=== PATIENT | male | born 1945 | race Caucasian/White ===

== ENCOUNTER 2023-11-17 10:50 | Outpatient (REF) | payer MEDICARE, OTHER, SELFPAY ==
[2023-11-17 14:09] LABS: MANUAL DIFF FLAG NO
[2023-11-17 14:11] LABS: Basophils Absolute Auto 0.1 X10*3/uL (0.0-0.2); Basophils Percent Auto 1.1 % (0-2); Eosinophils Absolute Auto 0.4 X10*3/uL (0.0-0.4); Eosinophils Percent Auto 4.8 % (0-4); Hemoglobin 14.5 g/dl (14.0-18.0); Imm Gran Abs Auto 0.02 X10*3/uL (0.00-0.03); Imm Gran Pct Auto 0.2 % (0.0-0.4); Lymphocytes Absolute Auto 1.6 X10*3/uL (1.2-4.9); Lymphocytes Percent Auto 18.2 % (20-40); Mean Corpuscular Hemoglobin 30.1 pg (27.0-33.0); Mean Corpuscular Volume 91.5 fL (80.0-98.0); Mean Platelet Volume 11.5 fL (9.4-12.4); Monocytes Absolute Auto 0.6 X10*3/uL (0.1-1.2); Monocytes Percent Auto 6.5 % (2-11); Neutrophils Absolute Auto 6.1 x10*3/uL (2.0-8.3); Neutrophils Percent Auto 69.2 % (45-73); Platelet Count 254 X10*3/uL (160-400); Red Blood Count 4.81 X10*6/uL (4.60-5.80); Red Cell Distribution Width 13.7 % (11.0-16.0); White Blood Count 8.8 X10*3/uL (4.8-10.8)
[2023-11-17 14:38] LABS: Alanine Aminotransferase 21 U/L (0-40); Albumin Level 4.6 g/dL (3.5-5.0); Alkaline Phosphatase 47 U/L (39-117); Anion Gap 13 (12-20); Aspartate Amino Transferase 23 U/L (5-37); Bilirubin Total 0.4 mg/dL (0.0-1.0); Blood Urea Nitrogen 23 mg/dL (9-16); Calcium 10.3 mg/dL (8.4-10.2); Carbon Dioxide 30 mmol/L (22-29); Chloride 104 mmol/L (96-108); Cholesterol 235 mg/dL (<200); Estimated Glomerular Filt Rate 35; Glucose Random 98 mg/dL (60-115); HDL Cholesterol 39 mg/dL (>40); LDL Cholesterol Calculated 160 mg/dL (<100); Sodium 143 mmol/L (135-145); Total Protein 7.7 g/dL (6.5-8.0); Triglycerides 183 mg/dL (<150)
[2023-11-17 14:55] LABS: TSH reflex Free T4 0.98 uIU/mL (0.32-4.0)
== END 2023-11-17 10:51 | disposition home or self-care (01) ==
LOC: HO.CHCLDS 10:50
PROVIDERS: Visit Provider Internal Medicine
DX: N40.1 Benign prostatic hyperplasia with lower urinary tract symptoms (principal); R39.12 Poor urinary stream; N18.2 Chronic kidney disease, stage 2 (mild); E78.2 Mixed hyperlipidemia
CPT/HCPCS: 36415; 80053; 80061; 84443; 85025

== ENCOUNTER 2024-06-14 16:19 | Outpatient (REF) | payer MEDICARE, OTHER, SELFPAY ==
--- OUTSIDE RECORDS SUMMARY | 2024-06-14 16:21 | XMS_ITS | Encounter Summary ---
Author Organization [employer] Address [address] [place] [address] Care Team Providers Care Household Coordinator Name Role Phone Vernon Madden MD Primary Care Provider [phone] [phone] Encounter Details Date Type Department Care Team (Latest Contact Info) Description 06/14/2024 Travel Social History Tobacco Use Types Packs/Day Years Used Date Smoking Tobacco: Former Cigarettes Smokeless Tobacco: Never Alcohol Answer Date Recorded Q1: How often do you have a drink containing alc ohol? 2 03/12/2024 Q2: How many drinks containi ng alcohol do you have on a typical day when you are drinking? 0 03/12/2024 Q3: How often do you have six or more drinks on one occasion? 2 03/12/2024 Depression Answer Date Recorded Patient Health Questionnaire-9 Score 3 05/01/2024 Patient Health Questionnaire-9 Score 3 05/01/2024 Last PHQ-9: Questionnaire Data Not on file 0 05/01/2024 Housing Stability Answer Date Recorded What is your housing situation today? I have alannah mota 11/10/[address] you li ve. Do you have problems with any of the following? None of the above 11/10/2023 Food Insecurity Answer Date Recorded Within the past 12 months, y ou worried that your food would run out before you got money to buy more: Never True 11/10/2023 Within the past 12 months,th e food you bought just didn't last and you didn't have enough money to get more: Never True 04/2023 Transportation Answer Date Recorded In the past 12 months, has l ack of transportation kept you from medical appts, meetings, work or from getting things needed for daily living? No 11/10/2023 Utilities Answer Date Recorded In the past 12 months, has t he electric, gas, oil or water company threatened to shut off services in your home? No 11/10/2023 Depression Answer Date Recorded Patient Health Questionnaire-2 Score 0 05/01/2024 Internet Access Answer Date Recorded Internet Access Q1 Yes 11/10/2023 Internet Access Q2 Not on file 11/10/2023 Sex and Gender Information Value Date Recorded Sex Assigned at Male 11/17/2023 9:41 AM EDT Legal Sex Male 7:52 AM EDT Gender Identity Male 11/17/2023 9:41 AM EDT Sexual Orientation Straight 11/17/2023 9: 41 AM EDT documented as of this encounter Plan of Treatment Upcoming Encounters Date Type Department Care Team (Late st Contact Info) Description 07/03/2024 3:15 PM EDT Office Visit [facility] P[facility]S [address] [place] [address] Vernon Madden MD [address] [place] [address] documented as of this encounter Visit Diagnoses Not on filedocumented in this encounter Additional Health Concerns Assessment Noted Time PHQ-9 Depression Total Score: 3 05/02/19 25 8:07 AM EDT documented as of this encounter Care Teams Household Coordinator Relationship Specialty Start Date End Date Vernon Madden MD [address] [place] [address] PCP - General Internal Medicine 11/17/23 documented as of this encounter
--- OUTSIDE RECORDS SUMMARY | 2024-06-14 16:21 | XMS_ITS | Clinical Summary ---
Author Organization [employer] Address [address] [facility] 7[address] [place] [address] Care Team Providers Care Jail Officer Name Role Phone Vernon Madden MD Primary Care Provider [phone] Allergies No known active allergies Medications atorvastatin (Lipitor) 10 MG tabletIndicati ons:Mixed hyperlipidemia ,Chronic systolic congestive heart failure (CMS/HCC) Take 1 tablet (10 mg) by mouth Once per day. 90 tablet 3 11/17/19 24 Active diphenhydrAMIN E-acetaminophe n (Tylenol PM Extra Strength) 25-500 MG per tabletIndicati ons:Primary insomnia Take 1 tablet by mouth if needed at bedtime for sleep. 30 tablet 11 11/17/19 24 Active meclizine (Antivert) 12.5 MG tabletIndicati ons:Benign prostatic hyperplasia with weak urinary stream Take 1 tablet (12.5 mg) by mouth if needed in the morning and at bedtime for dizziness. 3060 tablet 1 11/17/19 24 Active tamsulosin (Flomax) 0.4 MG 24 hr capsule Take 2 capsules (0.8 mg) by mouth Once per day. 90 capsule 3 11/17/19 24 Active bisoprolol (Zebeta) 5 MG tablet Take 1.25 mg by mouth Once per day. Active Farxiga 10 MG Take 1 tablet by mouth Once per day. 11/28/19 24 Active omeprazole (PriLOSEC) [address] capsule Take 1 capsule by mouth Once per day. 11/17/19 24 Active spironolactone (Aldactone) 25 MG tablet Take 12.5 mg by mouth Once per day. 12/12/19 24 Active furosemide (Lasix) 20 MG tabletIndicati ons:Wheezing Take 0.5 tablets (10 mg) by mouth Once per day. 15 tablet 1 03/12/19 25 2025 Active furosemide (Lasix) 20 MG tabletIndicati ons:Chronic systolic congestive heart failure (CMS/HCC) Take 1 tablet (20 mg) by mouth Once per day. 30 tablet 03/16/19 25 2025 Active levalbuterol (Xopenex) 0.63 MG/3ML nebulizer solutionIndica tions:Wheezing Take 1 ampule by nebulization in the morning, at noon, and at bedtime. 72 mL 11 05/08/19 25 2025 Active baclofen (Lioresal) 5 MG tabletIndicati ons:Neck muscle spasm Take 1 tablet (5 mg) by mouth 3 times daily. TAKE 1 TABLET(5 MG) BY MOUTH IN THE MORNING AND AT BEDTIME NEEDED FOR MUSCLE CRAMPS 30 tablet 3 05/30/19 25 Active albuterol 108 (90 Base) MCG/ACT inhalerIndicat ions:SOB (shortness of breath) Inhale 2 puffs every 6 (six) hours if needed for wheezing. 18 g 3 05/30/19 25 Active azithromycin (Zithromax) 250 MG tabletIndicati ons:Chronic cough 500 mg on day 1, 250 mg day 2 through 5 6 tablet 05/30/19 25 Active albuterol 108 (90 Base) MCG/ACT inhalerIndicat ions:SOB (shortness of breath) Inhale 2 puffs every 6 (six) hours if needed for wheezing. 18 g 3 05/30/19 25 Active albuterol (2.5 MG/3ML) 0.083% nebulizer solutionIndica tions:Chronic cough,Wheezing Take 3 mL (2.5 mg) by nebulization every 6 (six) hours if needed for wheezing. 75 mL 11 05/30/19 25 2025 Active albuterol 108 (90 Base) MCG/ACT inhalerIndicat ions:SOB (shortness of breath) Inhale 2 puffs every 6 (six) hours if needed for wheezing. 18 g 3 11/17/19 24 2024 Discontinued(O ther) albuterol (2.5 MG/3ML) 0.083% nebulizer solutionIndica tions:Wheezing Take 3 mL (2.5 mg) by nebulization every 6 (six) hours if needed for wheezing. 75 mL 11 05/09/19 25 2024 Discontinued(R eorder (will not trigger notification to Pharmacy)) baclofen (Lioresal) 5 MG tabletIndicati ons:Neck muscle spasm TAKE 1 TABLET(5 MG) BY MOUTH IN THE MORNING AND AT BEDTIME NEEDED FOR MUSCLE CRAMPS 30 tablet 05/15/19 25 2024 Discontinued(R eorder (will not trigger notification to Pharmacy)) predniSONE (Deltasone) 20 MG tabletIndicati ons:Chronic cough Take 2 tablets (40 mg) by mouth Once per day for 5 days. 10 tablet 05/30/192024 guaiFENesin-co deine (Robitussin-AC ) 100-10 MG/5ML syrupIndicatio ns:Chronic cough Take 5 mL by mouth if needed in the morning, at noon, in the evening, and at bedtime for cough for up to 5 days. 237 mL 05/30/19 25 2024 Active Problems Problem Noted Date Diagnosed Date Hydronephrosis with urinary obstruction due to renal calculus 12/30/2023 Abdominal bloating 11/17/2023 Albuminuria 11/17/2023 Arthritis of finger of right hand 11/17/2023 BPH (benign prostatic hyperplasia) 11/17/2023 Dyspepsia 11/17/2023 Hyperlipidemia 11/17/2023 Hypertension 11/17/2023 Irregular heart beat 11/17/2023 Overweight with body mass index (BMI) 25.0-29.9 11/17/2023 Leg cramps 11/17/2023 Systolic congestive heart failure 11/17/2023 Chronic kidney disease, stage 2 (mild) Encounters Date Type Department Care Team Description 06/14/2024 3:15 PM EDT Office Visit [facility]S [address] [place] [address] Vernon Madden MD Dizziness on standing (Primary Dx); Primary hypertension 06/14/2024 Travel 06/14/2024 Telephone [facility] [address] [place] [address] Vernon Washington MD Nurse Triage 05/29/2024 11:00 AM EDT Office Visit [facility]ED[facility] [address] [place] [address] Vernon Madden MD Chronic cough (Primary Dx); SOB (shortness of breath); Wheezing 05/29/2024 Travel 05/29/2024 Telephone [facility] [address] [place] [phone] Vernon Madden MD Appointment Request 05/29/2024 Refill [facility] [address] [place] [phone] Vernon Madden MD Neck muscle spasm; SOB (shortness of breath) 05/21/2024 Telephone [facility] [address] [place] [address] Vernon Madden MD 05/14/2024 Refill [facility] [address] [place] [address] Vernon Madden MD Neck muscle spasm 05/08/2024 Orders Only [facility] [address] [place] [address] Vernon Pinto MD Wheezing (Primary Dx) 05/07/2024 Orders Only [facility] [address] [place] [address] Vernon Madden MD Wheezing (Primary Dx) 05/07/[address] [address] Vernon Madden MD New Med Request 04/30/2024 4:00 PM EDT Office Visit [facility] [address] [place] [address] Vernon Pinto MD Subacute cough (Primary Dx); Wheezing 04/30/2024 Travel 04/25/2024 Refill [facility] [address] [place] [address] Vernon Pinto MD Neck muscle spasm 04/02/2024 Refill [facility] [address] [place] [address] Vernon Madden MD Neck muscle spasm from Last 3 Months Immunizations Name Administration Dates Next Due Influenza Quadrivalent Adjuvanted 11/19/2020 Influenza, High Dose Seasona l, Preservative Free 11/17/2023 Influenza, IIV3, injectable 11/19/2020, 3,02/16/2012 Pfizer Covid-19 Vaccine 12+ 11/17/2023 Pneumococcal Conjugate PCV 20 11/17/2023 Family History Medical History Relation Name Comments Kidney failure Brother Diabetes type II Mother Relation Name Status Comments Brother Mother Social History Tobacco Use Types Packs/Day Years Used Date Smoking Tobacco: Former Cigarettes Smokeless Tobacco: Never Tobacco Cessation:Counseling Given: No Alcohol Answer Date Recorded Q1: How often [...] Orientation Straight 11/17/2023 9: 41 AM EDT Last Filed Vital Signs Vital Sign Reading Time Taken Comments Blood Pressure 128/108 06/14/2024 3:27 PM EDT Pulse 64 06/14/2024 3:27 PM EDT Temperature 36.7 ??C (98 ??F) 06/14/2024 3:27 PM EDT Respiratory Rate 20 06/14/2024 3:27 PM EDT Oxygen Saturation 98% 06/14/2024 3:27 PM EDT Inhaled Oxygen Concentration - - Weight 78.9 kg (174 lb) 06/14/2024 3:27 PM EDT Height 175.3 cm (5' 9 ) 06/14/2024 3:27 PM EDT Body Mass Index 25.7 06/14/2024 3:27 PM EDT Plan of Treatment Upcoming Encounters Date Type Department Care Team (Late st Contact Info) Description 07/03/2024 3:15 PM EDT Office Visit [facility] [address] [place] [address] Vernon Madden MD [address] [place] [address] Health Maintenance Due Date Last Done Comments Hepatitis C Screening 1963 DTaP/Tdap/Td Vaccines (1 - Tdap) 10/25/1963 Zoster Vaccines (1 of 2) 1994 RSV Patients and Patients Aged 60 years or older (1 - 1-dose 75+ series) 10/25/2019 SDOH Screening 11/09/2024 11/10/2023 Alcohol/Substance Use Screening 03/12/2025 03/12/2024 Depression Screening 05/01/2025 05/01/2024, 03/25/20 25 Tobacco Screening 06/14/2025 06/14/2024 Lipid Panel 11/16/2028 11/17/2023 COVID-19 Vaccine Completed 11/17/2023, , 11/19/2020, Additional history exists Influenza Vaccine Completed 11/17/2023, , 11/19/2020, Additional history exists Pneumococcal Vaccine: 50+ Years Completed 11/17/2023 HIB Vaccines Aged Out No longer eligi ble based on patient's age to complete this topic HPV Vaccines Aged Out No longer eligi ble based on patient's age to complete this topic Hepatitis A Vaccines Aged Out No long er eligible based on patient's age to complete this topic Hepatitis B Vaccines Aged Out No long er eligible based on patient's age to complete this topic IPV Vaccines Aged Out No longer eligi ble based on patient's age to complete this topic Meningococcal Vaccine Aged Out No neyda sarah eligible based on patient's age to complete this topic RSV under 20 months Aged Out No longe r eligible based on patient's age to complete this topic Rotavirus Vaccines Aged Out No longer eligible based on patient's age to complete this topic Procedures Procedure Name Priority Date/Time Associated Diagnosis Comments XR CHEST 2 VIEWS Routine 05/29/2024 Chronic cough XR CHEST 2 VIEWS Routine 03/19/2024 Wheezing LIPID PANEL, STANDARD Routine 11/17/2023 10:57 AM EDT Mixed hyperlipidemia from Last 3 Months or Most Recently Relevant to Health Maintenance Results * XR Chest 2 Views (05/29/2024) Only the most recent of2 resultswithin the time period is included. Anatomical Region Laterality Modality Chest Radiographic Peri ging us Vernon Madden MD IMG XR PROCEDURES Final Res ult * (ABNORMAL) Lipid Panel, Standard (11/17/2023 10:57 AM EDT) Triglycerides 183(H) <150 mg/dL [facility] Comment:Desirable Triglyceri de: less than 150 mg/dLBorderline High Triglyceride 150-199 mg/dLHigh Triglyceride: 200-499 mg/dLVery High Triglyceride: greater than or equal to 5OO mg/dL Cholesterol 235(H) <200 mg/dL [facility] Comment:Desirable Cholestero l: less than 200 mg/dLBorderline High Cholesterol: 200-239 mg/dLHigh Cholesterol: greater than 239 mg/dL LDL Cholesterol Calculated 160(H) <100 mg/dL [facility] Comment:Desirable LDL: less than 100 mg/dLNear Optimal/Above Optimal LDL: 110- 129 mg/dLBorderline High LDL: 130-159 mg/dLHigh LDL: 160-189 mg/dLVery High LDL: greater than or equal to 190 mg/dL HDL Cholesterol 39(L) >40 mg/dL [facility] Comment:Desirable HDL: great er than 40 mg/dL Note: This HDL assay may give artificially low results in patients with liver disease. Blood Venous blood specimen / Unknown 11/17/2023 10:57 AM EDT 11/17/2023 2:02 PM EDT Vernon Madden MD LAB BLOOD ORDERABLES Final Result [facility] [address] [place] [address] [phone] from Last 3 Months or Most Recently Relevant to Health Maintenance Insurance [facility] [place] [address] [place] [id number] Care Teams Jail Officer Relationship Specialty Start Date End Date Vernon Madden MD [address] [place] [phone] PCP - General Internal Medicine 11/17/23
--- OUTSIDE RECORDS SUMMARY | 2024-06-14 16:21 | XMS_ITS | Continuity of Care Document ---
Author Organization [facility] Address [address] [place] [id number]- Care Team Providers Care Hand Tool Lapper Name Role Phone Vernon Madden MD Primary Care Physician Encounter [facility] Date(s): 05/09/24 - 06/08/24 [facility] [address] [place] [id number]- Encounter Type: Triage Allergies, Adverse Reactions, Alerts No Known Medication Allergies Immunizations Given and Recorded Vaccine Date Status Refusal Reason [id number] 12y+ bivalent booster vax 12/24/21 Recorded influenza virus vaccine, inactivated 11/19/20 Abraham rded influenza virus vaccine, inactivated 11/13/12 Abraham rded influenza virus vaccine, inactivated 02/16/12 Abraham rded SARS-CoV-2 (COVID-19) mRNA BNT-162b2 vac 11/19/20 Recorded SARS-CoV-2 (COVID-19) mRNA BNT-162b2 vac 04/15/20 Recorded SARS-CoV-2 (COVID-19) mRNA BNT-162b2 vac 03/25/20 Recorded Medications Albuterol (Eqv-ProAir HFA) 90 mcg/inh inhalation aerosol 1 inhalation = 90 mcg, Inhalation, Every 4 hours, PRN as needed for shortness of breath or wheezing, # 8 Gm, 0 Refills, Maintenance, 04/27/24 2:30:00 PM EDT, Aerosol, [facility] #[id number], Partial fill upon patient request if the prescription is for a schedule II opioid drug., 1 inhalation Inhalation Every 4 hours,PRN:as needed for shortness of breath or wheezing, 175, cm, 04/27/24 12:57:00EDT, Height, 80.6, kg, 04/27/24 12:57:00 EDT, Dry Weight Start Date: 04/27/24 Status: Ordered Quantity: 8.0 Unit: g Repeat number: 1 albuterol CFC free 90 mcg/inh inhalation aerosol 1, puffs, Inhalation, 4 times a day, PRN, # 8 Gm, Refills 2, Tot. Refills 2, Maintenance, 09/21/23 11:13:00 AM EDT, Aerosol, Route to Pharmacy Electronically, [id number], [facility] #[id number], 175, cm, 09/21/23 10:56:00 EDT, Height, 87.2, kg, 08/17/23 14:24:00 EDT, Dry Weight Start Date: 09/21/23 Status: Ordered Quantity: 8.0 Unit: g Repeat number: 3 atorvastatin 10 mg oral tablet 1 tablet = 10 mg, By Mouth, Daily, # 30 tablet, 0 Refills, Maintenance, 11/28/23 8:54:00 AM EDT, Partial fill upon patient request if the prescription is for a schedule II opioid drug. Start Date: 11/28/23 Status: Ordered Quantity: 30.0 Unit: tablet Repeat number: 1 bisoprolol 5 mg oral tablet See Instructions, 1 tablet By Mouth Daily, # 90 tablet, 2 Refills, Maintenance, 04/23/24 11:33:00 AMEDT, Tablet, [facility] #[id number], dose increase, 175, cm, 04/23/24 11:02:00 EDT, Height, 80.1, kg, 04/06/24 8:38:00 EST, Dry Weight Start Date: 04/23/24 Status: Ordered Quantity: 90.0 Unit: tablet Repeat number: 3 dapagliflozin 10 mg oral tablet 1 tablet = 10 mg, By Mouth, Daily, Name brand only, # 90 tablet, 3 Refills, Maintenance, 03/27/24 9:42:00 AM EST, Tablet, [facility], Partial fill upon patient request if the prescription is for a schedule II opioid drug., 175, cm, 03/12/24 15:20:00 EST, Height, 83, kg, 12/14/23 13:18:00 EST, Dry Weight Start Date: 03/27/24 Status: Ordered Quantity: 90.0 Unit: tablet Repeat number: 4 Entresto 97 mg-103 mg oral tablet See Instructions, 1 tablet By Mouth 2 times a day, # 60 tablet, 5 Refills, Maintenance, 03/12/24 3:37:00 PM EST, Tablet, [facility] #[id number], dose increase, please cancel entresto 49/51mg rx, 1tablet By Mouth 2 times a day, 175, cm, 03/12/24 15:20:00 EST, Height, 83, kg, 12/14/23 13:18:00 EST, Dry Weight Start Date: 03/12/24 Status: Ordered Quantity: 60.0 Unit: tablet Repeat number: 6 spironolactone 25 mg oral tablet See Instructions, 0.5 tablet By Mouth Daily, # 15 tablet, Refills 3, Tot. Refills 3, Maintenance, 12/12/23 3:40:00 PM EST, Instructions Replace Required Details, Route to Pharmacy Electronically, [facility] #[id number], Partial fill upon patient request if the prescription is for a schedule II opioid drug., 175, cm, 12/12/23 14:55:00 EST, Height, 87.2, kg, 08/17/23 14:24:00 EDT, Dry Weight Start Date: 12/12/23 Status: Ordered Quantity: 15.0 Unit: tablet Repeat number: 4 tamsulosin 0.4 mg oral capsule 2, capsule, By Mouth, Daily, # 180 capsule, Refills 1, Maintenance, 05/17/23 9:07:00 AM EDT, Route toPharmacy Electronically, [facility] #[id number], 174, cm, 12/08/22 10:39:00 EDT, Height Start Date: 05/17/23 Status: Ordered Quantity: 180.0 Unit: capsule Repeat number: 1 Problem List Condition Confirmation Course Effective Dates Status H ealth Status Informant Abdominal bloating Confirmed Active HAIR (acute kidney injury) Confirmed Active Albuminuria Confirmed Active Arthritis of finger of right hand Confirmed Active BPH (benign prostatic hyperplasia) Confirmed Active BMI 28.0-28.9,adult Confirmed Active Chest wall pain Confirmed Active CKD (chronic kidney disease), stage II Confirmed Active CHF (congestive heart failure) Confirmed Active Leg cramps Confirmed Active Abnormal stress echo Confirmed Active Hyperlipidemia Confirmed Active Hypertension Confirmed Active Dyspepsia Confirmed Active Irregular heart beat Confirmed Active Social History Social History Type Response Smoking Status Never (less than 100 in lifetime) entered on: 10/14/20 Sex Sex Representation Male (finding) Goals pt will call if has any issu es obtaining or affording GDMT or has any side effects Start Date:05/11/24 End Date: Status:Met Progression:Not Met pt will attend phase III car diac rehab as tolerated - and keep all testing appts Start Date:05/11/24 End Date: Status:Met Progression:Not Met pt will keep NPV with pulmon rigo for consult and use inhalers and nebulizer as instructed - call pCP Start Date:05/11/24 End Da te: Status:Met Progression:Not Met pt will call HF clinic to re port early signs and sxs of worsening HF , wt gain > 3 lbs or bp < 90 Start Date:05/11/24 End Date: Status:Met Progression:Not Met pt will keep all appointment s with GDMT clinic and with required labs Start Date:02/22/24 End Date: Status:Met Progression:Met Exacerbations and Complications of HF Avoided St art Date:11/28/23 End Date: Status:Met Progression:Not Met Follows Heart Failure Self-Management Plan Start Date:11/28/23 End Date: Status:Met Progression:Not Met I Will Weigh Daily, Report Gain of 2 lb/24 hr fo r 2 mos Start Date:11/28/23 End Date: Status:Met Progression:Not Met Maintains Medication Compliance Start Date:11/27 End Date: Status:Goal met Progression:Not Met Patient Care team information Care Team Personnel Name: Vernon Madden MD Position: [facility] Outreach Member Role: PCP Address: [address] [place] [phone]- Telecom: Name: Kaitlynn De La Cruz Position: [facility] tool or die drawing checker Member Role: Family Court Justice Name: Tess Kinsey RN Position: [facility] RN Member Role: Primary Care Nurse Name: Jethro Rowley MD Position: [facility] Renal MD Member Role: Lifetime Consulting Physician Address: [address] [place] [address] [phone] [facility] [place] [address]- Telecom: Care Team Related Persons Name: JAYME SNOWDEN Name: [employer] Insurance Providers Guarantor name: GERHARD SNOWDEN Health Plan Information #: 1 Payer: MEDICARE PART B OUTPT Member Number: NA Policy Number: NA Group Number: NA Health Plan Information #: 2 Payer: ARISTIDES LEVINE Member Number: NA Policy Number: NA Group Number: NA
--- OUTSIDE RECORDS SUMMARY | 2024-06-14 16:21 | XMS_ITS | Encounter Summary ---
Author Organization [employer] Address [address] [facility] [address] [place] [address] Care Team Providers Care Analytical Research Program Manager Name Role Phone Vernon Madden MD Primary Care Provider [phone] Encounter Details Date Type Department Care Team ([facility] st Contact Info) Description 03/16/2024 Orders Only [facility] [address] [place], [place] [phone] Vernon Madden MD [address] [place] [address] Social History Tobacco Use Types Packs/Day Years [...] more drinks on one occasion? 2 03/12/2024 Housing Stability Answer Date Recorded What is [...] off services in your home? No 11/10/2023 Internet Access Answer Date Recorded Internet Access [...] Description 07/03/2024 3:15 PM EDT Office Visit [facility] [address] [place] [address] Vernon Madden MD [address] [place] [address] documented as of this encounter Visit Diagnoses Not on filedocumented in this encounter Care Teams Analytical Research Program Manager Relationship Specialty Start Date End Date Vernon Madden MD [address] [place] [address] PCP - General Internal Medicine 11/17/23 documented as of this encounter
--- OUTSIDE RECORDS SUMMARY | 2024-06-14 16:21 | XMS_ITS | Encounter Summary ---
Author Organization [employer] Address [address] [facility] 7 [place] [address] Care Team Providers Care Judicial Reporter Name Role Phone Vernon Madden MD Primary Care Provider +1- [phone] Reason for Visit * Reason Onset Date Comments Nurse Triage 06/14/2024 Encounter Details Date Type Department Care Team ([facility] st Contact Info) Description 06/14/2024 Telephone [facility] MEDICINE [address] [place] [address] Vernon Madden MD [address] [place] [address] Nurse Triage Social History Tobacco Use Types Packs/Day Years [...] AM EDT documented as of this encounter Miscellaneous Notes * Telephone Encounter - Gracie Peres RN - 06/14/2024 1:34 PM EDT Call returned to Uriel Smith to triage below. Reports having increased dizziness . Per pt taking meclizine 12.5mg Bid . Per pt dizziness is positional changes. Pt using BP meds and furosemide 20mg once a day. Pt denies any MARTÍNEZ, blurred vision, N/V or diarrhea. Pt advised of disposition, agrees to sick onsite with PCP to discuss. Protocol Used: Dizziness (Adult) Protocol-Based Disposition: See in Office or Video Visit Today Future Appointments Date Time Provider Department Center 06/14/2024 3:15 PM Vernon Madden MD [facility] 07/03/2024 3:15 PM Vernon Madden MD [facility] Insurance verified as active per Real Time Eligibility in [place]. Positive Triage Question: * Moderate dizziness (e.g., interferes with normal activities) (Exception: Dizziness caused by heatexposure, sudden standing, or poor fluid intake.) * All higher-acuity triage questions were negative Care Advice Discussed: * Reassurance and Education - Dizziness From Standing * Sit Up Slowly Before Standing * Reasons To Call Back - After 2 hours of rest and fluids and you are still feeling dizzy - You pass out (faint) or are too weak to stand - You become worse * Telephone Encounter - Rock Hammondarez - 06/14/2024 1:14 PM EDT Symptom: Worsening Dizziness Outcome: Schedule an urgent appointment (within 4 hours) or talk to a nurse or provider soon Reason: Getting worse The caller accepted this outcome. documented in this encounter Plan of Treatment Upcoming Encounters Date Type Department Care Team (Late st Contact Info) Description 07/03/2024 3:15 PM EDT Office Visit [facility] MED & PEDS [address] [place] [address] Vernon Madden MD [address] [place] [address] documented as of this encounter Visit Diagnoses Not on filedocumented in this encounter Additional Health Concerns Assessment Noted Time PHQ-9 Depression Total Score: 3 05/02/19 25 8:07 AM EDT documented as of this encounter Care Teams Judicial Reporter Relationship Specialty Start Date End Date Vernon Madden MD [address] [place] [address] PCP - General Internal Medicine 11/17/23 documented as of this encounter
--- OUTSIDE RECORDS SUMMARY | 2024-06-14 16:21 | XMS_ITS | Encounter Summary ---
Author Organization [employer] Address 75 [facility] 7 [place] [address] Care Team Providers Care Perinatal Educator Name Role Phone Vernon Madden MD Primary Care Provider [phone]- [phone] Reason for Visit * Reason Comments Dizziness Encounter Details Date Type Department Care Team ([facility] Contact Info) Description 06/14/2024 3:15 PM EDT Office Visit [facility] MED & PEDS [address] [place], [place] [phone] Vernon Madden MD [address] [place] [address] Dizziness on standing (Primary Dx); Primary hypertension Social History Tobacco Use Types Packs/Day Years [...] AM EDT documented as of this encounter Last Filed Vital Signs Vital Sign Reading [...] Mass Index 25.7 06/14/2024 3:27 PM EDT documented in this encounter Plan of Treatment Upcoming Encounters Date Type Department Care Team (Late st Contact Info) Description 07/03/2024 3:15 PM EDT Office Visit [facility] MED & PEDS [address] [place] [address] Vernon Madden MD [address] [place], [place] [phone] Scheduled Orders Name Type Priority Associated Diagnoses Orde r Schedule CBC auto differential Lab Routine Dizziness on standing Expected: 06/14/2024 (Approximate), Expires: 06/14/2025 Basic Metabolic Panel Lab Routine Dizziness on standing Expected: 06/14/2024 (Approximate), Expires: 06/14/2025 TSH W/Reflex to FT4 Lab Routine Dizziness on standing Primary hypertension Expected: 06/14/2024 (Approximate), Expires: 06/14/2025 documented as of this encounter Visit Diagnoses Diagnosis Dizziness on standing- Primary Primary hypertension Unspecified essential hypertension documented in this encounter Additional Health Concerns Assessment Noted Time PHQ-9 Depression Total Score: 3 05/02/19 25 8:07 AM EDT documented as of this encounter Care Teams Perinatal Educator Relationship Specialty Start Date End Date Vernon Madden MD [address] [place] [address] PCP - General Internal Medicine 11/17/23 documented as of this encounter
--- OUTSIDE RECORDS SUMMARY | 2024-06-14 16:21 | XMS_ITS | Encounter Summary ---
Author Organization [employer] Address [address] [place] [address] 7 [place] [address] Care Team Providers Care Lvn Lpn Name Role Phone Vernon Madden MD Primary Care Provider +1- [phone] Reason for Referral * PFT (Routine) - Authorized Specialty Diagnoses / Procedures Referred By Willy guillermo Referred To Contact Diagnoses Wheezing Procedures Pulmonary Function Test Vernon Madden MD [address] [place] [address] Phone: tel: fax: [facility] Referral ID Status Reason Start Date Expiration Date V isits Requested Visits Authorized [id number] Authorized 05/21/2024 05/21/2025 1 1 Encounter Details Date Type Department Care Team ([facility] st Contact Info) Description 05/08/2024 Orders Only [facility] MED & PEDS [address] [place] [address] Vernon Madden MD [address] [place] [address] Wheezing (Primary Dx) Social History Tobacco Use Types Packs/Day Years [...] Description 07/03/2024 3:15 PM EDT Office Visit [facility] MED & PEDS [address] [place] [address] Vernon Madden MD [address] [place] [address] Scheduled Orders Name Type Priority Associated Diagnoses Orde r Schedule Pulmonary Function Test PFT Routine Wheezing Expected: 05/21/2024, Expires: 11/20/2024 documented as of this encounter Visit Diagnoses Diagnosis Wheezing- Primary documented in this encounter Additional Health Concerns Assessment Noted Time PHQ-9 Depression Total Score: 3 05/02/19 25 8:07 AM EDT documented as of this encounter Care Teams Lvn Lpn Relationship Specialty Start Date End Date Vernon Madden MD [address] [place] [address] PCP - General Internal Medicine 11/17/23 documented as of this encounter
--- OUTSIDE RECORDS SUMMARY | 2024-06-14 16:22 | XMS_ITS | Encounter Summary ---
Author Organization [employer] Address 75 [facility] 7t [place] [address] Care Team Providers Care Instructor Painting Name Role Phone Vernon Madden MD Primary Care Provider +1- [phone] Reason for Visit * Reason Onset Date Comments Hospital Follow-up 12/16/2023 Encounter Details Date Type Department Care Team ([facility] st Contact Info) Description 12/16/2023 Telephone [facility] MEDICINE [address] [place] [address] Vernon Madden MD [address] [place] [address] Hospital Follow-up Social History Tobacco Use Types Packs/Day Years Used Date Smoking Tobacco: Former Cigarettes Housing Stability Answer Date Recorded What is [...] encounter Miscellaneous Notes * Telephone Encounter - Sandi Henson - 12/16/2023 10:34 AM EST Tc from pt requesting a HDF appt. Hospital: [facility] Date of admission: 12/13/2023 Discharge date: 12/15/2023 Diagnosed: Kidney Stones *Send message to [place] Clinical Care Coordinators documented in this encounter Plan of Treatment Upcoming Encounters Date Type Department Care Team (Late st Contact Info) Description 07/03/2024 3:15 PM EDT Office Visit [facility] MED & PEDS [address] [place] [address] Vernon Madden MD [address] [place] [address] documented as of this encounter Visit Diagnoses Not on filedocumented in this encounter Care Teams Instructor Painting Relationship Specialty Start Date End Date Vernon Madden MD [address] [place] [address] PCP - General Internal Medicine 11/17/23 documented as of this encounter
--- OUTSIDE RECORDS SUMMARY | 2024-06-14 16:22 | XMS_ITS | Encounter Summary ---
Author Organization [employer] Address 75 [facility] 7t [place] [address] Care Team Providers Care Reservation Sales Agent Name Role Phone Vernon Madden MD Primary Care Provider +1- [phone] Reason for Visit * Reason Onset Date Comments Hospital Follow-up 12/19/2023 Encounter Details Date Type Department Care Team ([facility] st Contact Info) Description 12/19/2023 Telephone [facility] MEDICINE [address] [place] [address] Vernon Madden MD [address] [place] [address] Hospital Follow-up Social History Tobacco Use Types [...] * Telephone Encounter - Sandi Henson - 12/19/2023 10:00 AM EST Tc from pt requesting a HDF appt. [place] [facility] [place] of admission: 12/14/2023 Discharge date: 12/15/2023 Diagnosed: kidneys problems *Send message to [employer] Clinical Care Coordinators documented in this encounter Plan of Treatment Upcoming Encounters Date Type Department Care Team ([facility] st Contact Info) Description 07/03/2024 3:15 PM EDT Office Visit [facility] MED & PEDS [address] [place] [address] Vernon Madden MD [address] [place] [address] documented as of this encounter Visit Diagnoses Not on filedocumented in this encounter Care Teams Reservation Sales Agent Relationship Specialty Start Date End Date Vernon Madden MD [address] [place] [address] PCP - General Internal Medicine 11/17/23 documented as of this encounter
--- OUTSIDE RECORDS SUMMARY | 2024-06-14 16:22 | XMS_ITS | Clinical Summary ---
Author Organization [facility] Address [address] [place] [address] Care Team Providers Care Catering Barista Name Role Phone Vernon Madden MD Primary Care Provider Unav ailable Allergies No known active allergies Medications atorvastatin (LIPITOR) 10 MG tablet Take 10 mg by mouth 1 (one) time each day Active famotidine (PEPCID) 20 MG tablet Take 20 mg by mouth 2 (two) times a day Active gabapentin (NEURONTIN) 300 MG capsule Take 1 capsule (300 mg total) by mouth every night 90 capsule 3 1 Active Baclofen 5 MG tablet TAKE 1 TABLET BY MOUTH TWICE DAILY NEEDED FOR MUSCLE CRAMPS Active spironolactone (ALDACTONE) 25 MG tablet See Instructions, 0.5 tablet By Mouth Daily, # 15 tablet, Refills 3, Tot. Refills 3, Maintenance, 12/12/23 15:40:00 EST, Instructions Replace Required Details, Route to Pharmacy Electronically, [id number], Partial fill upon patient re... 4 Active bisoprolol (ZEBETA) 5 MG tablet Take 5 mg by mouth 1 (one) time each day Active albuterol HFA (PROVENTIL HFA;VENTOLIN HFA) 108 (90 Base) MCG/ACT inhaler INHALE 2 PUFFS INTO THE LUNGS EVERY 6 HOURS NEEDED FOR WHEEZING Active diphenhydrAMINE -Acetaminophen 12.5-325 MG tablet Take 1 tablet by mouth 4 Active Loratadine (CLARITIN PO) Take by mouth Ac tive Dapagliflozin Propanediol (Farxiga) 10 MG tabletIndicatio ns:Chronic Renal Disease,Heart Failure Take 10 mg by mouth 1 (one) time each day in the morning Active furosemide (LASIX) 20 MG tablet Take 20 mg by mouth in the morning. 5 03/16/19 26 Active Entresto 97-103 MG per tablet Take 1 tablet by mouth in the morning and 1 tablet in the evening. 5 Active tamsulosin (FLOMAX) 0.4 MG 24 hr capsule Take 2 capsules by mouth 1 (one) time each day 4 Active Active Problems Problem Noted Date Diagnosed Date Hypertension 03/20/2024 Chronic kidney disease due to benign hypertensio n 12/25/2023 Renal stone 12/25/2023 Hydronephrosis with renal an d ureteral calculous obstruction 12/25/2023 Stage 3b chronic kidney disease 12/20/2023 Chronic kidney disease, stage 2 (mild) 1 Encounters Date Type Department Care Team Description 03/27/2024 Orders Only [facility] [address] [address] Jethro Rowley MD 03/20/2024 9:30 AM EST Office Visit [facility] [address] [address] Lisa Torrez ARNP Stage 3b chronic kidney disease (HCC) (Primary Dx); Renal stone; Hydronephrosis with renal and ureteral calculous obstruction; Hypertension from Last 3 Months Social History Tobacco Use Types Packs/Day Years Used Date Smoking Tobacco: Never Smokeless Tobacco: Never Alcohol Use Standard Drinks/Week Comments Yes 0 (1 standard drink = 0.6 oz pur e alcohol) Sex and Gender Information Value Date Recorded Sex Assigned at Not on file Legal Sex Male 11:39 AM EDT Gender Identity Not on file Sexual Orientation Not on file Last Filed Vital Signs Vital Sign Reading Time Taken Comments Blood Pressure 100/64 03/20/2024 9:53 AM EST Pulse 90 03/20/2024 9:53 AM EST Temperature - - Respiratory Rate - - Oxygen Saturation 98% 03/20/2024 9:53 AM EST Inhaled Oxygen Concentration - - Weight 81.2 kg (179 lb) 03/20/2024 9:53 AM EST Height 175.3 cm (5' 9 ) 01/23/2021 10:24 AM EST Body Mass Index 26.43 01/23/2021 10:24 AM EST Plan of Treatment Upcoming Encounters Date Type Department Care Team (Late st Contact Info) Description 09/12/2024 1:45 PM EDT Office Visit [facility] [address] [address] Jethro Rowley MD [address] [address] Health Maintenance Due Date Last Done Comments Influenza Vaccine Completed 11/17/2023, 11/19/2020 Pneumococcal Vaccine: 50+ Years Completed 11/17/2023 Hepatitis B Vaccine Aged Out No longe r eligible based on patient's age to complete this topic Procedures Procedure Name Priority Date/Time Associated Diagnosis Comments URINE ALBUMIN / CREATININE RATIO Routine 03/27/2024 9:31 AM EST PROTEIN / CREATININE RATIO, URINE Routine 03/27/2024 9:31 AM EST URINALYSIS WITH MICROSCOPIC Routine 03/27/2024 9:31 AM EST MICROSCOPIC EXAMINATION - DO NOT USE Routine 03/27/2024 9:31 AM EST PTH, INTACT Routine 03/27/2024 9:19 AM EST MAGNESIUM Routine 03/27/2024 9:19 AM EST VITAMIN D 25 HYDROXY Routine 03/27/2024 9:19 AM EST CBC Routine 03/27/2024 9:19 AM EST RENAL FUNCTION PANEL Routine 03/27/2024 9:19 AM EST from Last 3 Months Results * Microscopic Examination (03/27/2024 9:31 AM EST) WBC, Urine 0-5 0 - 5 /hpf [facility] RBC, Urine None seen 0 - 2 /hpf [facility] Squamous Epithelial, Urine None seen 0 - 10 /hpf [facility] Casts None seen None seen /lpf [facility] Bacteria, Urine None seen None seen/Few [facility] 03/27/2024 9:31 AM EST 03/27/2024 Jethro Rowley MD LAB MICROBIOLOGY - GENERAL OR DERABLES Final Result Performing Organization Address City/[facility]/ZIP Co de Phone Number [facility] [address] [place] [address] * Protein, Total, Random Urine w/Creatinine (Protein/Creat Ratio) (03/27/2024 9:31 AM EST) Creatinine, Ur 28.1 Not Estab. mg/dL [facility] Protein, Ur 4.1 Not Estab. mg/dL [facility] Urine Protein/Creatin ine Ratio 146 0 - 200 mg/g creat [facility] 03/27/2024 9:31 AM EST 03/27/2024 Jethro Rowley MD LAB URINE ORDERABLES Final Re sult [facility] [address] [place] [address] * (ABNORMAL) Urine Albumin / Creatinine Ratio (03/27/2024 9:31 AM EST) Albumin, Urine 8.6 Not Estab. ug/mL [facility] Albumin/Creatin ine Ratio 31(H) 0 - 29 mg/g creat [facility] Comment: ? Normal: ?0 - ??29 ? Moderately increased: 30 - 300 ? Severely increased: ? >300 03/27/2024 9:31 AM EST 03/27/2024 us Jethro Rowley MD LAB URINE ORDERABLES Final Re pelon [facility] [address] [place] [address] * (ABNORMAL) Urinalysis with microscopic (03/27/2024 9:31 AM EST) Specific [place], Urine 1.008 1.005 - 1.030 [facility] [phone] pH Urine 5.5 5.0 - 7.5 [facility] [phone] Color, Urine Yellow Yellow [facility] Appearance Urine Clear Clear [facility] WBC Esterase Urine 2+(A) Negative [facility] [phone] Protein, Ur Negative Negative/Tra ce [facility] [phone] Glucose, Ur Trace(A) Negative [facility] Ketones, Urine Negative Negative [facility] Blood Urine Negative Negative [facility] Bilirubin Urine Negative Negative [facility] Urobilinogen Urine 0.2 0.2 - 1.0 mg/dL [facility] Nitrite, Urine Negative Negative [facility] Microscopic Examination See below: [facility] Comment:Microscopic was korey cated and was performed. 03/27/2024 9:31 AM EST 03/27/2024 Jethro Rowley MD LAB URINE ORDERABLES Final Re sult Performing Organization Address City/[facility] Co de Phone Number [facility] [address] [place] [address] * (ABNORMAL) Vitamin D 25 Hydroxy (03/27/2024 9:19 AM EST) Vitamin D, 25-OH, Total 25.1(L) 30.0 - 100.0 ng/mL [facility] Comment: Vitamin D deficiency has been defined by the [place] of Medicine and an Endocrine Society practice guideline as a level of serum 25-OH vitamin D less than 20 ng/mL (1,2). The Endocrine Society went on to further define vitamin D insufficiency as a level between 21 and 29 ng/mL (2). 1. IOM ([place] of Medicine). 2010. Dietary reference ?? intakes for calcium and D. [place]: The ?? National Academies Press. 2. Johann MF, Brian NC, Susan MARTÍNEZ, et al. ?? Evaluation, treatment, and prevention of vitamin D ?? deficiency: an Endocrine Society clinical practice ?? guideline. JCEM. 2010; 96(7):1911-30. 03/27/2024 9:19 AM EST 03/27/2024 Jethro Rowley MD LAB BLOOD ORDERABLES Final Re sult Performing Organization Address City/[facility]/ZIP Co de Phone Number [facility] [address] [place] [address] * CBC (03/27/2024 9:19 AM EST) WBC 6.9 3.4 - 10.8 x10E3/uL [facility] RBC 4.46 4.14 - 5.80 x10E6/uL [facility] Hemoglobin 13.9 13.0 - 17.7 g/dL [facility] Hematocrit 41.4 37.5 - 51.0 % [facility] MCV 93 79 - 97 fL [facility] MCH 31.2 26.6 - 33.0 pg [facility] MCHC 33.6 31.5 - 35.7 g/dL [facility] RDW 13.1 11.6 - 15.4 % [facility] Platelets 225 150 - 450 x10E3/uL [facility] 03/27/2024 9:19 AM EST 03/27/2024 Jethro Rowley MD LAB BLOOD ORDERABLES Final Re sult [facility] [address] [place] [address] * (ABNORMAL) PTH, Intact (03/27/2024 9:19 AM EST) PTH 118(H) 15 - 65 pg/mL [facility] 03/27/2024 9:19 AM EST 03/27/2024 Jethro Rowley MD LAB BLOOD ORDERABLES Final Re sult [facility] [address] [place] [address] * Magnesium (03/27/2024 9:19 AM EST) Magnesium 2.1 1.6 - 2.3 mg/dL [facility] 03/27/2024 9:19 AM EST 03/27/2024 Jethro Rowley MD LAB BLOOD ORDERABLES Final Re sult [facility] [address] [place] [address] * (ABNORMAL) Renal Function Panel (03/27/2024 9:19 AM EST) Pathologist [facility] Glucose 92 70 - 99 mg/dL [facility] BUN 22 8 - 27 mg/dL [facility] Creatinine 1.97(H) 0.76 - 1.27 mg/dL [facility] eGFR CKD-EPI CR 2020 34(L) >59 mL/min/1.7 3 [facility] BUN/Creatinine Ratio 11 10 - 24 [facility] Sodium 139 134 - 144 mmol/L [facility] Potassium 4.7 3.5 - 5.2 mmol/L [facility] Chloride 101 96 - 106 mmol/L [facility] Bicarbonate (CO2) 20 20 - 29 mmol/L [facility] Calcium 9.5 8.6 - 10.2 mg/dL [facility] Albumin 5.0(H) 3.8 - 4.8 g/dL [facility] Phosphorus 3.7 2.8 - 4.1 mg/dL [facility] 03/27/2024 9:19 AM EST 03/27/2024 Jethro Rowley MD LAB BLOOD ORDERABLES Final Re sult [facility] [address] [place] [address] from Last 3 Months Insurance Medicare Medicare [facility] Care Teams Catering Barista Relationship Specialty Start Date End Date Vernon Madden MD [address] [place] [address] STEPHON Garibay [address] PCP - General Internal Medicine 12/20/23
--- OUTSIDE RECORDS SUMMARY | 2024-06-14 16:22 | XMS_ITS | Encounter Summary ---
Author Organization [employer] Address [address] [facility] 7t [place] [address] Care Team Providers Care Manufacturer Name Role Phone Vernon Madden MD Primary Care Provider +1- [phone] Reason for Visit * Reason Onset Date Comments Med Refill 11/17/2023 Encounter Details Date Type Department Care Team ([facility] st Contact Info) Description 11/17/2023 Telephone [facility] & PEDS [address] [place], [place] [phone] Vernon Madden MD [address] [place] [address] Med Refill Social History Tobacco Use Types Packs/Day Years [...] encounter Miscellaneous Notes * Telephone Encounter - Lisa Mendes LPN - 11/17/2023 11:51 AM EDT Please review and advise. * Telephone Encounter - Hailey Duran - 11/17/2023 11:47 AM EDT TC from pt requesting medication refill. Medications needing refill : furosemide 20 mg To be sent to: [id number] [place] [address] [address] [facility] Pt was seen today for new patient appointment documented in this encounter Plan of Treatment Upcoming Encounters Date Type Department Care Team (Late st Contact Info) Description 07/03/2024 3:15 PM EDT Office Visit [facility] MED & PEDS [address] [place] [address] Vernon Madden MD [address] [place] [address] documented as of this encounter Visit Diagnoses Not on filedocumented in this encounter Care Teams Manufacturer Relationship Specialty Start Date End Date Vernon Madden MD [address] [place] [address] PCP - General Internal Medicine 11/17/23 documented as of this encounter
--- OUTSIDE RECORDS SUMMARY | 2024-06-14 16:22 | XMS_ITS | Encounter Summary ---
Author Organization [employer] Address [address] [place] [address] 7 [place] [address] Care Team Providers Care Raw Cheese Worker Name Role Phone Vernon Madden MD Primary Care Provider [phone] Reason for Referral * Consultation (Routine) - Closed Specialty Diagnoses / Procedures Referred By Willy guillermo Referred To Contact Nephrology Diagnoses CKD stage 3b, GFR 30-44 ml/min (CMS/HCC) Vernon Madden MD [address] [place] [address] Phone: tel: fax: [facility] [address], [address] [place] [address] Phone: tel: fax: Referral ID Status Reason Start Date Expiration Date V isits Requested Visits Authorized [id number] Closed Specialty Services Required 11/17/2023 11/16/2024 1 1 * Imaging (Routine) - Closed Specialty Diagnoses / Procedures Referred By Willy guillermo Referred To Contact Radiology Diagnoses CKD stage 3b, GFR 30-44 ml/min (CMS/HCC) Procedures US RENAL BI Vernon Madden MD [address] [place] [address] Phone: tel: fax: [facility] [address] [place], [place] Phone: tel: fax: Referral ID Status Reason Start Date Expiration Date Visits Re quested Visits Authorized [id number] Closed 11/17/2023 11/16/2024 1 1 Encounter Details Date Type Department Care Team ([facility] st Contact Info) Description 11/17/2023 Orders Only [facility] [address] [place] [address] Vernon Madden MD [address] [place] [address] Abdominal bloating (Primary Dx); Benign prostatic hyperplasia with weak urinary stream; Primary hypertension; Leg cramps; Mixed hyperlipidemia; Primary insomnia; SOB (shortness of breath); Chronic systolic congestive heart failure (CMS/HCC); CKD stage 3b, GFR 30-44 ml/min (CMS/HCC) Social History Tobacco Use Types Packs/Day Years [...] as of this encounter Miscellaneous Notes * Result Encounter Note - Vernon Madden MD - 11/17/2023 12:24 PM EDT Please call for status check. This patient was advised to go to the hospital to get a CT scan as soon as possible. Noted to have a severe hydronephrosis with dilated ureter containing a stone on renal ultrasound from December 13, 2023. documented in this encounter Plan of Treatment Upcoming Encounters Date Type Department Care Team (Late st Contact Info) Description 07/03/2024 3:15 PM EDT Office Visit [facility] [address] [place] [address] Vernon Madden MD [address] [place] [address] Scheduled Referrals Name Type Priority Associated Diagnoses Order Schedule Referral to Nephrology Outpatient Referral Routine CKD stage 3b, GFR 30-44 ml/min (CMS/HCC) Expected: 11/17/2023 (Approximate), Expires: 11/16/2024 documented as of this encounter Procedures Procedure Name Priority Date/Time Associated Diagnosis Comments US RENAL BI Routine 12/13/2023 CKD stage 3b, GFR 30-44 ml/min (CMS/HCC) documented in this encounter Results * US RENAL BI (12/13/2023) Anatomical Region Laterality Modality Abdomen Ultrasound us Vernon Madden MD IMG US PROCEDURES Final Res ult documented in this encounter Visit Diagnoses Diagnosis Abdominal bloating- Primary Flatulence, eructation, and gas pain Benign prostatic hyperplasia with weak urinary stream Primary hypertension Unspecified essential hypertension Leg cramps Cramp of limb Mixed hyperlipidemia Primary insomnia Persistent disorder of initiating or maintaining sleep SOB (shortness of breath) Shortness of breath Chronic systolic congestive heart failure (CMS/HCC) CKD stage 3b, GFR 30-44 ml/min (CMS/HCC) documented in this encounter Care Teams Raw Cheese Worker Relationship Specialty Start Date End Date Vernon Madden MD [address] [place] [id number] PCP - General Internal Medicine 11/17/23 documented as of this encounter
[2024-06-14 17:40] LABS: MANUAL DIFF FLAG NO
[2024-06-14 17:55] LABS: Basophils Absolute Auto 0.1 X10*3/uL (0.0-0.2); Eosinophils Absolute Auto 0.5 X10*3/uL (0.0-0.4); Eosinophils Percent Auto 5.5 % (0-4); Hematocrit 36.4 % (42.0-52.0); Hemoglobin 12.1 g/dl (14.0-18.0); Imm Gran Abs Auto 0.01 X10*3/uL (0.00-0.03); Imm Gran Pct Auto 0.1 % (0.0-0.4); Lymphocytes Absolute Auto 1.4 X10*3/uL (1.2-4.9); Lymphocytes Percent Auto 16.1 % (20-40); Mean Corpuscular HGB Conc 33.2 g/dl (31.0-36.0); Mean Corpuscular Hemoglobin 31.1 pg (27.0-33.0); Mean Corpuscular Volume 93.6 fL (80.0-98.0); Mean Platelet Volume 11.6 fL (9.4-12.4); Monocytes Absolute Auto 0.4 X10*3/uL (0.1-1.2); Monocytes Percent Auto 4.7 % (2-11); Neutrophils Absolute Auto 6.4 x10*3/uL (2.0-8.3); Neutrophils Percent Auto 72.6 % (45-73); Platelet Count 195 X10*3/uL (160-400); Red Blood Count 3.89 X10*6/uL (4.60-5.80); Red Cell Distribution Width 13.2 % (11.0-16.0); White Blood Count 8.8 X10*3/uL (4.8-10.8)
[2024-06-14 18:11] LABS: Anion Gap 13 (12-20); Blood Urea Nitrogen 39 mg/dL (9-16); Calcium 9.4 mg/dL (8.4-10.2); Carbon Dioxide 25 mmol/L (22-29); Chloride 106 mmol/L (96-108); Estimated Glomerular Filt Rate 27; Glucose Random 84 mg/dL (60-115); Potassium 5.4 mmol/L (3.3-5.1); Sodium 139 mmol/L (135-145)
[2024-06-14 18:27] LABS: TSH reflex Free T4 1.13 uIU/mL (0.32-4.0)
== END 2024-06-14 16:20 | disposition home or self-care (01) ==
LOC: HO.CHCLDS 16:19
PROVIDERS: Visit Provider Internal Medicine
DX: R42 Dizziness and giddiness (principal); I10 Essential (primary) hypertension
CPT/HCPCS: 36415; 80048; 84443; 85025

== ENCOUNTER 2024-08-28 14:00 | Outpatient (REF) | payer MEDICARE, OTHER, SELFPAY ==
--- OUTSIDE RECORDS SUMMARY | 2024-08-26 23:59 | XMS_ITS | Continuity of Care Document ---
Author Organization [facility] Address [address] [place] [address]- Care Team Providers Care Batch Operator Name Role Phone Vernon Madden MD Primary Care Physician [phone] Encounter [facility] [place](s): 07/27/24 - 08/26/24 [facility] [address] [place] [id number]- Encounter Type: Triage Allergies, Adverse Reactions, Alerts No Known Medication Allergies Immunizations Given and Recorded Vaccine Date Status Refusal Reason [id number] 12y+ bivalent booster vax 12/24/21 Recorded influenza virus vaccine, inactivated 11/19/20 Abraham rded influenza virus vaccine, inactivated 11/13/12 Abraham rded influenza virus vaccine, inactivated 02/16/12 Abraham rded SARS-CoV-2 (COVID-19) mRNA BNT-162b2 vac 11/19/20 Recorded SARS-CoV-2 (COVID-19) mRNA BNT-162b2 vac 04/15/20 Recorded SARS-CoV-2 (COVID-19) mRNA BNT-162b2 vac 03/25/20 Recorded Medications acetaminophen 325 mg oral tablet 975 mg, By Mouth, 3 times a day, Refills 0, Maintenance, 08/05/24 11:34:00 AM EDT, Partial fill uponpatient request if the prescription is for a schedule II opioid drug. Start Date: 08/05/24 Status: Ordered Repeat number: 1 albuterol CFC free 90 mcg/inh inhalation aerosol 1, puffs, Inhalation, 4 times a day, PRN, # 8 Gm, Refills 2, Tot. Refills 2, Maintenance, 09/21/23 11:13:00 AM EDT, Aerosol, Route to Pharmacy Electronically, [id number], 175, cm, 09/21/23 10:56:00 EDT, Height, 87.2, [...] Quantity: 30.0 Unit: tablet Repeat number: 1 bisacodyl 10 mg rectal suppository 1 supp = 10 mg, Rectally, Daily, PRN Constipation, 0 Refills, Maintenance, 08/05/24 11:34:00 AM EDT,Suppository, Partial fill upon patient request if the prescription is for a schedule II opioid drug. Start Date: 08/05/24 Status: Ordered Repeat number: 1 bisoprolol 5 mg oral tablet = 2.5 mg, By Mouth, 2 times a day, 0 Refills, Maintenance, 08/05/24 11:33:00 AM EDT, Tablet, Partialfill upon patient request if the prescription is for a schedule II opioid drug. Start Date: 08/05/24 Status: Ordered Repeat number: 1 cholecalciferol 1000 intl units oral tablet By Mouth, Daily, 0 Refills, Maintenance, 08/05/24 11:34:00 AM EDT, Tablet, Partial fill upon patientrequest if the prescription is for a schedule II opioid drug. Start Date: 08/05/24 Status: Ordered Repeat number: 1 Dilaudid 2 mg oral tablet = 2 mg, By Mouth, Every 4 hours, PRN Pain , Moderate, 0 Refills, Maintenance, 08/05/24 11:35:00 AM EDT, Tablet, Partial fill upon patient request if the prescription is for a schedule II opioid drug. Start Date: 08/05/24 Status: Ordered Repeat number: 1 Enoxaparin 0.4 mL = 40 mg, Subcutaneous Injection, Every 24 hours, can stop when ambulatory, 0 Refills, Maintenance, 08/05/24 11:34:00 AM EDT, Injection, Partial fill upon patient request if the prescription is for a schedule II opioid drug. Start Date: 08/05/24 Status: Ordered Repeat number: 1 lidocaine 5% topical film Topically, Daily, 0 Refills, Maintenance, 08/05/24 11:34:00 AM EDT, Patch, Partial fill upon patientrequest if the prescription is for a schedule II opioid drug. Start Date: 08/05/24 Status: Ordered Repeat number: 1 melatonin 3 mg oral tablet = 6 mg, By Mouth, Every 24 hours, 0 Refills, Maintenance, 08/05/24 11:34:00 AM EDT, Tablet, Partial fill upon patient request if the prescription is for a schedule II opioid drug. Start Date: 08/05/24 Status: Ordered Repeat number: 1 MiraLax Powder 1 pack/packet = 17 Gm, By Mouth, Daily, 0 Refills, Maintenance, 08/05/24 11:34:00 AM EDT, Powder, Partial fill upon patient request if the prescription is for a schedule II opioid drug. Start Date: 08/05/24 Status: Ordered Repeat number: 1 Multivitamin Tablet 1 tablet, By Mouth, Daily, 0 Refills, Maintenance, 08/05/24 11:34:00 AM EDT, Tablet, Partial fill upon patient request if the prescription is for a schedule II opioid drug. Start Date: 08/05/24 Status: Ordered Repeat number: 1 omeprazole 20 mg oral enteric coated capsule 1 capsule = 20 mg, By Mouth, Daily, # 30 capsule, 0 Refills, Maintenance, 07/28/24 4:26:00 PM EDT, EC Capsule, Partial fill upon patient request if the prescription is for a schedule II opioid drug. Start Date: 07/28/24 Status: Ordered Quantity: 30.0 Unit: capsule Repeat number: 1 senna 187 mg oral tablet 2 tablet = 17.2 mg, By Mouth, Daily at bedtime, 0 Refills, Maintenance, 08/05/24 11:34:00 AM EDT, Tablet, Partial fill upon patient request if the prescription is for a schedule II opioid drug. Start Date: 08/05/24 Status: Ordered Repeat number: 1 Senna 8.6 mg oral tablet 17.2 mg, 2, tablet, By Mouth, Daily, Refills 0, Maintenance, 08/05/24 11:34:00 AM EDT, Tablet, Partial fill upon patient request if the prescription is for a schedule II opioid drug. Start Date: 08/05/24 Status: Ordered Repeat number: 1 Symbicort 160mcg/4.5mcg Inhaler 2, inhalation, Inhalation, 2 times a day, rinse mouth and throat after use, # 6 Gm, Refills 2, Tot.Refills 2, Maintenance, 06/22/24 11:52:00 AM EDT, Aerosol, Route to Pharmacy Electronically, [id number], [facility] #[id number], 175, cm, 06/22/24 11:17:00 EDT, Height, 80.6, kg, 04/27/24 14:40:00 EDT, Dry Weight Start Date: 06/22/24 Status: Ordered Quantity: 6.0 Unit: g Repeat number: 3 tamsulosin 0.4 mg oral capsule 2, capsule, By Mouth, Daily, # 180 capsule, Refills 1, Maintenance, 05/17/23 9:07:00 AM EDT, Route toPharmacy Electronically, [facility] #[id number], 174, cm, 12/08/22 10:39:00 EDT, Height Start Date: 05/17/23 Status: Ordered Quantity: 180.0 Unit: capsule Repeat number: 1 traZODone 50 mg oral tablet 50 mg, By Mouth, Daily at bedtime, PRN, Refills 0, Maintenance, Insomnia, 08/05/24 11:34:00 AM EDT, Partial fill upon patient request if the prescription is for a schedule II opioid drug. Start Date: 08/05/24 Status: Ordered Repeat number: 1 Problem List Condition Confirmation [...] Sex Representation Male (finding) Goals pt will keep all ost-op appt s with [facility] and his multi specialists Start Date:08/20/24 End Date: Status:Met Progression:Not Met pt will call if has any issu [...] 2 mos Start Date:11/28/23 End Date: Status:Met Progression:Met Maintains Medication Compliance Start Date:11/27 End Date: Status:Goal met Progression:Met Patient Care team information Care Team Personnel Name: Vernon Madden MD Position: [facility] Outreach Member Role: PCP Address: [address] [place] [id number] Telecom: Name: Willard Bernal RN Position: S RN Member Role: Primary Care Nurse Name: Agnes Walls RN Position: S RN Member Role: Primary Care Nurse Name: Varsha Pathak RN Position: S RN Member Role: Primary Care Nurse Name: Rory Danielle RN Position: S RN Member Role: Primary Care Nurse Name: Kaitlynn De La Cruz Position: [facility] delimer Member Role: Bone Grinder Name: Tess Kinsey RN Position: [facility] RN Member Role: Primary Care Nurse Name: Jethro Rowley MD Position: [facility] Renal MD Member Role: Lifetime Consulting Physician Address: [address] [facility] [address] [facility] [address] Telecom: Care Team Related Persons Name: JAYME SNOWDEN Name: [employer] Insurance Providers Guarantor name: GERHARD ISI [employer] Plan Information #: 1 Payer: MEDICARE B Payer Identifier: GHISLAINE Member Number: [id number] Group Number: Subscriber Identifier: [id number] Relationship to Subscriber: self Coverage Type: NA Coverage Verification Date: NA Telecom: NA Address: Health Plan Information #: 2 Payer: ARISTIDES LEVINE Payer Identifier: GHISLAINE Member Number: [id number] Group Number: Subscriber Identifier: [id number] Relationship to Subscriber: self Coverage Type: Medicare Other Coverage Verification Date: NA Telecom: Address:
--- OUTSIDE RECORDS SUMMARY | 2024-08-28 15:19 | XMS_ITS | Clinical Summary ---
Author Organization [employer] Address [address] [facility] [address] [place] [address] Care Team Providers Care Grocery Clerk Name Role Phone Vernon Madden MD Primary Care Provider [phone]- [phone] Allergies No known active allergies Medications atorvastatin (Lipitor) 10 MG tabletIndicatio ns:Mixed hyperlipidemia, Chronic systolic congestive heart failure (CMS/HCC) Take 1 tablet (10 mg) by mouth Once per day. 90 tablet 3 024 Active bisoprolol (Zebeta) 5 MG tablet Take 0.5 tablets by mouth 2 times daily. Active levalbuterol (Xopenex) 0.63 MG/3ML nebulizer solutionIndicat ions:Wheezing Take 1 ampule by nebulization in the morning, at noon, and at bedtime. 72 mL 11 025 2025 Active albuterol 108 (90 Base) MCG/ACT inhalerIndicati ons:SOB (shortness of breath) Inhale 2 puffs every 6 (six) hours if needed for wheezing. 18 g 3 025 Active albuterol (2.5 MG/3ML) 0.083% nebulizer solutionIndicat ions:Chronic cough,Wheezing Take 3 mL (2.5 mg) by nebulization every 6 (six) hours if needed for wheezing. 75 mL 11 025 2025 Active tamsulosin (Flomax) 0.4 MG 24 hr capsule TAKE 2 CAPSULES(0.8 MG) BY MOUTH DAILY 180 capsule 1 025 Active budesonide-form oterol (Symbicort) 160-4.5 MCG/ACT inhaler Inhale 2 puffs in the morning and at bedtime. Rinse mouth and throat after use Active acetaminophen (Tylenol) 325 MG tablet Take 975 mg by mouth if needed in the morning, at noon, and at bedtime for mild pain. Active HYDROmorphone (Dilaudid) 2 MG tablet Take 2 mg by mouth every 4 (four) hours if needed for severe pain. 2024 Active lidocaine (Lidoderm) 5 % patch Apply 1 patch topically Once per day. Active traZODone (Desyrel) 50 MG tablet Take 1 tablet by mouth if needed at bedtime for sleep. Active esomeprazole (NexIUM) [address] capsule Take 1 capsule by mouth before breakfast. Do not open capsule. Active Enoxaparin Sodium 40 MG/0.4ML solution prefilled syringe Inject 0.4 mL under the skin Once per day. 2024 Active senna-docusate sodium (Senokot-S) 8.6-50 MG tabletIndicatio ns:Other constipation Take 1 tablet by mouth Once per day. 30 tablet 2025 Active Cholecalciferol (Vitamin D3) 1000 units capsuleIndicati ons:Other constipation Take 1 capsule by mouth Once per day. 30 capsule Active diphenhydrAMINE -acetaminophen (Tylenol PM Extra Strength) 25-500 MG per tabletIndicatio ns:Primary insomnia Take 1 tablet by mouth if needed at bedtime for sleep. 30 tablet 11 2024 Discontinued(M ed list cleanup (will not trigger notification to Pharmacy)) Farxiga 10 MG Take 1 tablet by mouth Once per day. 2024 Discontinued(M ed list cleanup (will not trigger notification to Pharmacy)) omeprazole (PriLOSEC) [address] capsule Take 1 capsule by mouth Once per day. 2024 Discontinued(M ed list cleanup (will not trigger notification to Pharmacy)) spironolactone (Aldactone) 25 MG tablet Take 12.5 mg by mouth Once per day. 024 2024 Discontinued(M ed list cleanup (will not trigger notification to Pharmacy)) furosemide (Lasix) 20 MG tabletIndicatio ns:Wheezing Take 0.5 tablets (10 mg) by mouth Once per day. 15 tablet 1 025 2024 Discontinued(M ed list cleanup (will not trigger notification to Pharmacy)) furosemide (Lasix) 20 MG tabletIndicatio ns:Chronic systolic congestive heart failure (CMS/HCC) Take 1 tablet (20 mg) by mouth Once per day. 30 tablet 025 2024 Discontinued(M ed list cleanup (will not trigger notification to Pharmacy)) baclofen (Lioresal) 5 MG tabletIndicatio ns:Neck muscle spasm Take 1 tablet (5 mg) by mouth 3 times daily. TAKE 1 TABLET(5 MG) BY MOUTH IN THE MORNING AND AT BEDTIME NEEDED FOR MUSCLE CRAMPS 30 tablet 3 025 2024 Discontinued(M ed list cleanup (will not trigger notification to Pharmacy)) albuterol 108 (90 Base) MCG/ACT inhalerIndicati ons:SOB (shortness of breath) Inhale 2 puffs every 6 (six) hours if needed for wheezing. 18 g 3 025 2024 Discontinued(M ed list cleanup (will not trigger notification to Pharmacy)) azithromycin (Zithromax) 250 MG tabletIndicatio ns:Chronic cough 500 mg on day 1, 250 mg day 2 through 5 6 tablet 025 2024 Discontinued(M ed list cleanup (will not trigger notification to Pharmacy)) meclizine (Antivert) 12.5 MG tabletIndicatio ns:Benign prostatic hyperplasia with weak urinary stream TAKE 1 TABLET BY MOUTH EVERY MORNING AND 1 TABLET EVERY NIGHT AT BEDTIME FOR DIZZINESS 60 tablet 1 025 2024 Discontinued(M ed list cleanup (will not trigger notification to Pharmacy)) ENOXAPARIN SODIUM IJ Inject 40 mg under the skin 1 (one) time each day at the same time. 025 2024 Discontinued(M ed list cleanup (will not trigger notification to Pharmacy)) Cholecalciferol (Vitamin D3) 1000 units capsule Take 1 capsule by mouth Once per day. 2024 Discontinued(R eorder (will not trigger notification to Pharmacy)) Active Problems Problem Noted Date Diagnosed Date [...] Encounters Date Type Department Care Team Description 08/28/2024 1:00 PM EDT Office Visit [facility] [address] [place] [address] Vernon Madden MD Other constipation (Primary Dx); Primary hypertension 08/28/2024 Travel 08/22/2024 Telephone [facility] [address] [place] [address] Vernon Madden MD Call Back Request 08/15/2024 Patient Outreach [facility] [address] [place] [address] Vernon Madden MD Transition Of Care (Tcm) (HDF scheduled. ) 08/07/2024 Telephone [facility] [address] [place] [address] Vernon Madden MD ER Follow-up 07/03/2024 3:15 PM EDT Office Visit [facility] [address] [place] [address] Vernon Madden MD Hyperkalemia (Primary Dx); Primary hypertension; Dizziness on standing 07/03/2024 Travel 06/22/2024 Refill [facility] [address] [place] [address] Vernon Madden MD Benign prostatic hyperplasia with weak urinary stream 06/21/2024 1:15 PM EDT Clinical Support [facility] [address] [place] [address] Vanessa Vaca, RN SOB (shortness of breath) 06/21/2024 Travel 06/20/2024 Results Follow-Up [facility] [address] [place] [address] Wing Holloway RN Pulmonary Function Test 06/20/2024 Travel 06/19/2024 Telephone [facility] [address] [place] [phone] Vernon Madden MD Results; Appointment Request 06/18/2024 Telephone [facility] [address] [place] [phone] Vernon Madden MD Appointment Request 06/16/2024 Refill [facility] [address] [place] [phone] Vernon Madden MD 06/15/2024 Telephone [facility] [address] [place] [address] Vernon Madden MD Results 06/14/2024 3:15 PM EDT Office Visit [facility] [address] [place] [phone] Vernon Madden MD Dizziness on standing (Primary Dx); Primary hypertension 06/14/2024 Travel 06/14/[address] [phone] Vernon Madden MD Nurse Triage 05/29/2024 11:00 AM EDT Office Visit [facility] [address] [place] [address] Vernon Madden MD Chronic cough (Primary Dx); SOB (shortness of breath); Wheezing 05/29/2024 Travel 05/29/[address] [phone] Vernon Madden MD Appointment Request 05/29/2024 Refill [facility] [address] [place] [address] Vernon Madden MD Neck muscle spasm; SOB (shortness of breath) from Last 3 Months Immunizations Immunization Administration Dates Next Due Influenza Quadrivalent Adjuvanted [...] Sign Reading Time Taken Comments Blood Pressure 120/67 08/28/2024 1:26 PM EDT Pulse 72 08/28/2024 1:26 PM EDT Temperature 36.5 C (97.7 F) 08/28/2024 1:26 PM EDT Respiratory Rate 20 08/28/2024 1:26 PM EDT Oxygen Saturation 97% 08/28/2024 1:26 PM EDT Inhaled Oxygen Concentration - - Weight 79.4 kg (175 lb) 07/03/2024 3:12 PM EDT Height 175.3 cm (5' 9 ) 07/03/2024 3:12 PM EDT Body Mass Index 25.84 07/03/2024 3:12 PM EDT Plan of Treatment Health Maintenance Due Date Last Done Comments Hepatitis C Screening 1963 DTaP/Tdap/Td Vaccines (1 - Tdap) 10/25/1963 Zoster Vaccines (1 of 2) 1994 RSV Patients and Patients Aged 60 years or older (1 - 1-dose 75+ series) 10/25/2019 COVID-19 Vaccine ( season) 2024 11/17/2023, 12/24/2021, 11/19/2020, Additional history exists Influenza Vaccine (#1) 2024 , 11/19/2020, 11/19/2020, Additional history exists SDOH Screening 11/09/2024 11/10/2023 Alcohol/Substance Use Screening 03/12/2025 03/12/2024 Depression Screening 05/01/2025 05/01/2024, 05/02/19 Tobacco Screening 07/03/2025 07/03/2024 Lipid Panel 11/16/2028 11/17/2023 Pneumococcal Vaccine: 50+ Years Completed 11/17/2023 HIB [...] patient's age to complete this topic Meningococcal B Vaccine Aged Out No l onger eligible based on patient's age to complete [...] Procedure Name Priority Date/Time Associated Diagnosis Comments PULMONARY FUNCTION TESTING Routine 06/15/2024 Wheezing TSH W/REFLEX TO FT4 Routine 06/14/2024 4 :20 PM EDT Dizziness on standing Primary hypertension BASIC METABOLIC PANEL Routine 06/14/2024 4:20 PM EDT Dizziness on standing CBC WITH AUTO DIFFERENTIAL Routine 06/14/2024 4:20 PM EDT Dizziness on standing XR CHEST 2 VIEWS Routine 05/29/2024 Chronic cough LIPID PANEL, STANDARD Routine 11/17/2023 10:57 AM EDT Mixed hyperlipidemia from Last 3 Months or Most Recently Relevant to Health Maintenance Results * Pulmonary Function Test (06/15/2024) us Vernon Madden MD PFT ORDERABLES Final Resul t * TSH W/Reflex to FT4 (06/14/2024 4:20 PM EDT) TSH reflex Free T4 1.13 0.32 - 4.0 uIU/mL [facility] Blood Venous blood specimen / Unknown 06/14/2024 4:20 PM EDT 06/14/2024 5:37 PM EDT us Vernon Madden MD LAB BLOOD ORDERABLES Final Result [facility] [address] [place] [address] [phone] * (ABNORMAL) CBC auto differential (06/14/2024 4:20 PM EDT) White Blood Count 8.8 4.8 - 10.8 X10*3/uL [facility] Red Blood Count 3.89(L) 4.60 - 5.80 X10*6/uL [facility] Hemoglobin 12.1(L) 14.0 - 18.0 g/dl [facility] Hematocrit 36.4(L) 42.0 - 52.0 % [facility] Mean Corpuscular Volume 93.6 80.0 - 98.0 fL [facility] Mean Corpuscular Hemoglobin 31.1 27.0 - 33.0 pg [facility] Mean Corpuscular HGB Conc 33.2 31.0 - 36.0 g/dl [facility] Red Cell Distribution Width 13.2 11.0 - 16.0 % [facility] Platelet Count 195 160 - 400 X10*3/uL [facility] Mean Platelet Volume 11.6 9.4 - 12.4 fL [facility] Neutrophils Percent Auto 72.6 45 - 73 % [facility] Imm Gran Pct Auto 0.1 0.0 - 0.4 % [facility] Lymphocytes Percent Auto 16.1(L) 20 - 40 % [facility] Monocytes Percent Auto 4.7 2 - 11 % [facility] Eosinophils Percent Auto 5.5(H) 0 - 4 % [facility] Basophils Percent Auto 1.0 0 - 2 % [facility] NRBC Pct Auto 0.0 0.0 - 0.2 /100WBC [facility] Neutrophils Absolute Auto 6.4 2.0 - 8.3 x10*3/uL [facility] Imm Gran Abs Auto 0.01 0.00 - 0.03 X10*3/uL [facility] Lymphocytes Absolute Auto 1.4 1.2 - 4.9 X10*3/uL [facility] Monocytes Absolute Auto 0.4 0.1 - 1.2 X10*3/uL [facility] Eosinophils Absolute Auto 0.5(H) 0.0 - 0.4 X10*3/uL [facility] Basophils Absolute Auto 0.1 0.0 - 0.2 X10*3/uL [facility] NRBC Abs Auto 0.000 0.0 - 0.012 X10*3/uL [facility] Blood Venous blood specimen / Unknown 06/14/2024 4:20 PM EDT 06/14/2024 5:37 PM EDT us Vernon Madden MD LAB BLOOD ORDERABLES Final Result [facility] [address] [place] [phone] [phone] * (ABNORMAL) Basic Metabolic Panel (06/14/2024 4:20 PM EDT) Sodium 139 135 - 145 mmol/L [facility] Potassium 5.4(H) 3.3 - 5.1 mmol/L [facility] Chloride 106 96 - 108 mmol/L [facility] Carbon Dioxide 25 22 - 29 mmol/L [facility] Anion Gap 13 12 - 20 [facility] Urea Nitrogen (BUN) 39(H) 9 - 16 mg/dL [facility] Creatinine, Serum 2.37(H) 0.5 - 1.4 mg/dL [facility] Estimated Glomerular Filt Rate 27 [facility] Comment:Chronic Kidney Disea se: Estimated GFR < 60 mL/min/1.08f5Hwscmi Kidney Disease: Estimated GFR < 15 mL/min/1.73m2 Glucose 84 60 - 115 mg/dL [facility] Calcium 9.4 8.4 - 10.2 mg/dL [facility] Blood Venous blood specimen / Unknown 06/14/2024 4:20 PM EDT 06/14/2024 5:37 PM EDT us Vernon Madden MD LAB BLOOD ORDERABLES Final Result [facility] [address] [place] [phone] * XR Chest 2 Views (05/29/2024) Anatomical Region Laterality Modality Chest Radiographic Peri ging us Vernon Madden MD IMG XR PROCEDURES Final Res ult * (ABNORMAL) Lipid Panel, Standard (11/17/2023 10:57 AM EDT) Triglycerides 183(H) <150 mg/dL [facility] Comment:Desirable Triglyceri de: less than 150 mg/dLBorderline High Triglyceride 150-199 mg/dLHigh Triglyceride: 200-499 mg/dLVery High Triglyceride: greater than or equal to 5OO mg/dL Cholesterol 235(H) <200 mg/dL [facility] Comment:Desirable Cholestero l: less than 200 mg/dLBorderline High Cholesterol: 200-239 mg/dLHigh Cholesterol: greater than 239 mg/dL LDL Cholesterol Calculated 160(H) <100 mg/dL [facility] Comment:Desirable LDL: less than 100 mg/dLNear Optimal/Above Optimal LDL: 110- 129 mg/dLBorderline High LDL: 130-159 mg/dLHigh LDL: 160-189 mg/dLVery High LDL: greater than or equal to 190 mg/dL HDL Cholesterol 39(L) >40 mg/dL [facility] Comment:Desirable HDL: great er than 40 mg/dL Note: This HDL assay may give artificially low results in patients with liver disease. Blood Venous blood specimen / Unknown 11/17/2023 10:57 AM EDT 11/17/2023 2:02 PM EDT Vernon Madden MD LAB BLOOD ORDERABLES Final Result [facility] [address] [place] [address] [phone] from Last 3 Months or Most Recently Relevant to Health Maintenance Insurance [facility] MEDICARE Care Teams Grocery Clerk Relationship Specialty Start Date End Date Vernon Madden MD [address] [place] [phone] PCP - General Internal Medicine 11/17/23 [facility] 08/20/24
--- OUTSIDE RECORDS SUMMARY | 2024-08-28 15:19 | XMS_ITS | Clinical Summary ---
Author Organization [facility] Facility Address [address] [place] [address] Care Team Providers Care Water Valve Mechanic Name Role Phone Vernon Madden MD Primary [...] Replace Required Details, Route to Pharmacy Electronically, [id number], Partial fill upon patient re... 4 Active [...] Chronic kidney disease, stage 2 (mild) 1 Social History Tobacco Use Types Packs/Day Years [...] Care Team (Late st Contact Info) Description 09/19/2024 11:00 AM EDT Office Visit [facility] [address] [phone] Jethro oRwley MD [address] [phone] Health Maintenance Due Date Last Done Comments Influenza Vaccine (#1) 2024 , 11/19/2020 Pneumococcal Vaccine: 50+ Years Completed 11/17/2023 Hepatitis B Vaccine Aged Out No longe r eligible based on patient's age to complete this topic Insurance Medicare Medicare [facility] Care Teams Water Valve Mechanic Relationship Specialty Start Date End Date Vernon Madden MD [address] [place] [phone] PCP - General Internal Medicine 12/20/23
--- OUTSIDE RECORDS SUMMARY | 2024-08-28 15:19 | XMS_ITS | Encounter Summary ---
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 Name Role Phone Physician, Pcp Unknown Primary Care Provider Nirmala vailable Encounter Details Date Type Department Care Team (Late st Contact Info) Description 08/12/2024 Lab Requisition [facility] [address] [place] [address] Gareth Akers PA [address] [place] [address] Encounter for other general examination Social History Tobacco Use Types Packs/Day Years Used Date Smoking Tobacco: Never Assessed Sex and Gender Information Value Date Recorded Sex Assigned at Not on file Legal Sex Male 5:55 PM EST Gender Identity Not on file Sexual Orientation Not on file documented as of this encounter Plan of Treatment Not on file documented as of this encounter Procedures Procedure Name Priority Date/Time Associated Diagnosis Comments COMPLETE BLOOD COUNT Routine 08/12/2024 5:52 AM EDT Encounter for other general examination BASIC METABOLIC PANEL Routine 08/12/2024 5:52 AM EDT Encounter for other general examination documented in this encounter Results * (ABNORMAL) Basic metabolic panel (08/12/2024 5:52 AM EDT) Sodium 141 133 - 145 mmol/L LAB CHEMISTRY METHOD 08/12/2024 9:47 AM EDT [facility] Potassium 4.4 3.5 - 5.5 mmol/L LAB CHEMISTRY METHOD 08/12/2024 9:47 AM EDT [facility] Chloride 111(H) 96 - 110 mmol/L LAB CHEMISTRY METHOD 08/12/2024 9:47 AM [facility] CO2 25 21 - 32 mmol/L LAB CHEMISTRY METHOD 08/12/2024 9:47 AM [facility] Anion Gap 5 3 - 11 LAB CHEMISTRY METHOD 08/12/2024 9:47 AM [facility] Glucose 87 70 - 100 mg/dL LAB CHEMISTRY METHOD 08/12/2024 9:47 AM [facility] BUN 32(H) 5 - 25 mg/dL LAB CHEMISTRY METHOD 08/12/2024 9:47 AM [facility] Creatinine 1.74(H) 0.70 - 1.30 mg/dL LAB CHEMISTRY METHOD 08/12/2024 9:47 AM [facility] eGFR 39(L) >=60 mL/min/1. 73m2 LAB CHEMISTRY METHOD 08/12/2024 9:47 AM [facility] Comment:Calculation based on the Chronic Kidney Disease Epidemiology Collaboration (CKD-EPI) equation refit without adjustment for race. BUN/Creatinine Ratio 18.4 LAB CHEMISTRY METHOD 08/12/2024 9:47 AM [facility] Calcium 8.7 8.5 - 10.5 mg/dL LAB CHEMISTRY METHOD 08/12/2024 9:47 AM [facility] Blood Venous blood specimen / Unknown Venipuncture / Unknown 08/12/2024 5:52 AM EDT 08/12/2024 9:12 AM EDT us Gareth VALLEJO LAB BLOOD ORDERABLES Final Result [facility] [address] [place] [address], * (ABNORMAL) Complete blood count (08/12/2024 5:52 AM EDT) WBC 7.2 4.8 - 10.8 [facility] HEMETOLOGY METHOD 08/12/2024 9:40 AM [facility] RBC 3.10(L) 4.50 - 5.50 M/[facility] LAB HEMETOLOGY METHOD 08/12/2024 9:40 AM [facility] Hemoglobin 9.2(L) 13.5 - 17.5 g/dL LAB HEMETOLOGY METHOD 08/12/2024 9:40 AM [facility] Hematocrit 29.0(L) 42.0 - 54.0 % LAB HEMETOLOGY METHOD 08/12/2024 9:40 AM [facility] MCV 95.1 79.0 - 98.0 FL LAB HEMETOLOGY METHOD 08/12/2024 9:40 AM [facility] MCH 30.2 27.0 - 32.0 pcg LAB HEMETOLOGY METHOD 08/12/2024 9:40 AM [facility] MCHC 31.7(L) 32.0 - 37.0 g/dL LAB HEMETOLOGY METHOD 08/12/2024 9:40 AM [facility] RDW 13.2 11.0 - 15.0 % LAB HEMETOLOGY METHOD 08/12/2024 9:40 AM [facility] Platelets 374 130 - 400 K/mcL LAB HEMETOLOGY METHOD 08/12/2024 9:40 AM [facility] MPV 10.2 7.0 - 11.0 FL LAB HEMETOLOGY METHOD 08/12/2024 9:40 AM [facility] NRBC 0.0 <1.0 % LAB HEMETOLOGY METHOD 08/12/2024 9:40 AM [facility] NRBC Absolute 0.00 <0.10 K/mcL LAB HEMETOLOGY METHOD 08/12/2024 9:40 AM [facility] Blood Venous blood specimen / Unknown Venipuncture / Unknown 08/12/2024 5:52 AM EDT 08/12/2024 9:12 AM EDT us Gareth VALLEJO LAB BLOOD ORDERABLES Final Result [facility] [address] [place] [address], documented in this encounter Visit Diagnoses Diagnosis Encounter for other general examination documented in this encounter Care Teams Dry Roaster Relationship Specialty Start Date End Date Physician, Pcp Unknown PCP - General 08/08/24 documented as of this encounter
[2024-08-28 18:05] LABS: MANUAL DIFF FLAG NO
[2024-08-28 18:18] LABS: Hematocrit 30.1 % (42.0-52.0); Hemoglobin 10.0 g/dl (14.0-18.0); Imm Gran Abs Auto 0.03 X10*3/uL (0.00-0.03); Imm Gran Pct Auto 0.4 % (0.0-0.4); Lymphocytes Absolute Auto 1.3 X10*3/uL (1.2-4.9); Mean Corpuscular HGB Conc 33.2 g/dl (31.0-36.0); Mean Corpuscular Hemoglobin 31.5 pg (27.0-33.0); Mean Corpuscular Volume 95.0 fL (80.0-98.0); NRBC Abs Auto 0.000 X10*3/uL (0.0-0.012); NRBC Pct Auto 0.0 /100WBC (0.0-0.2); Platelet Count 208 X10*3/uL (160-400); Red Blood Count 3.17 X10*6/uL (4.60-5.80); White Blood Count 7.0 X10*3/uL (4.8-10.8)
[2024-08-28 18:26] LABS: Anion Gap 14 (12-20); Blood Urea Nitrogen 23 mg/dL (9-16); Calcium 9.3 mg/dL (8.4-10.2); Carbon Dioxide 26 mmol/L (22-29); Chloride 104 mmol/L (96-108); Estimated Glomerular Filt Rate 40; Potassium 4.8 mmol/L (3.3-5.1); Sodium 139 mmol/L (135-145)
== END 2024-08-28 14:01 | disposition home or self-care (01) ==
LOC: HO.CHCLDS 14:00
PROVIDERS: Visit Provider Internal Medicine
DX: K59.09 Other constipation (principal); I10 Essential (primary) hypertension
CPT/HCPCS: 36415; 80048; 85025